=== PATIENT | male | born 2000 | race Two or more races ===

== ENCOUNTER 2025-01-26 16:48 | Emergency (ER) | payer MEDICAID, SELFPAY ==
[2025-01-26 16:49] VITALS: BMI 24.3
[2025-01-26 17:30] VITALS: BP 138/78; PULSE 105; RESP 20; TEMP 37.1; O2SAT 97
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
[2025-01-26 19:31] VITALS: BP 126/72; PULSE 88; RESP 18; TEMP 36.7; O2SAT 98
== END 2025-01-26 19:32 | disposition home or self-care (01) ==
LOC: SERX 19:54
PROVIDERS: Emergency Provider Emergency Medicine
DX: S36.113A Laceration of liver, unspecified degree, initial encounter (principal); S36.029A Unspecified contusion of spleen, initial encounter; S79.911A Unspecified injury of right hip, initial encounter; V89.2XXA Person injured in unspecified motor-vehicle accident, traffic, initial encounter
CPT/HCPCS: 99281